=== PATIENT | female | born 1955 | race Caucasian/White ===

== ENCOUNTER 2022-11-14 00:57 | Emergency (ER) | payer MEDICARE, SELFPAY ==
--- NOTE | ~2022-11-14 | CT_ITS ---
EXAMINATION: CT ABDOMEN AND PELVIS WITH CONTRAST CLINICAL INFORMATION: Question colitis COMPARISON: None available. TECHNIQUE: Multidetector volumetric images were obtained from the superior aspect of the liver through the pubic symphysis following administration 85 mL of Omnipaque 350 intravenous contrast. Sagittal and coronal reformatted images were obtained on the technologist's workstation. Oral contrast: No This CT examination was performed using dose optimization techniques as appropriate, variously including the following: *Automated exposure control *Adjustment of mA and/or kV according to patient size (this includes techniques or standardized protocols for targeted exams where dose is matched to indication/reason for exam; i.e. extremities or head) *Use of iterative reconstruction technique DLP: 532 mGy-cm FINDINGS: LUNG BASES: The visualized lung bases are unremarkable. LIVER, GALLBLADDER, AND BILIARY TREE: The liver is normal in size, shape, and attenuation. No focal hepatic lesion. There is intrahepatic and extrahepatic biliary ductal dilatation. No ductal filling defects seen. Stones in the gallbladder lumen. The gallbladder is distended. No wall thickening. PANCREAS: Unremarkable. SPLEEN: Unremarkable. ADRENAL GLANDS: Unremarkable. KIDNEYS AND URETERS: The kidneys are normal in size, shape, and attenuation. No hydronephrosis, hydroureter, or calculi seen. No perinephric stranding. BLADDER: Unremarkable. GASTROINTESTINAL TRACT: The stomach is unremarkable. Normal caliber small bowel. No obstruction. There is diffuse colonic wall thickening with mild adjacent inflammation. No free air. Trace free fluid. Normal appendix. ABDOMINAL WALL: No significant hernia is appreciated. LYMPH NODES: Normal. VASCULAR: Normal caliber aorta with mild atherosclerotic calcification. PELVIC VISCERA: The uterus and adnexa are unremarkable. OSSEOUS STRUCTURES: No acute or suspicious osseous abnormality. Degenerative change throughout the spine. CT/CT abdomen pelvis w IV con IMPRESSION: 1. Diffuse colonic wall thickening with mild adjacent inflammation, consistent with colitis. 2. Intrahepatic and extrahepatic biliary ductal dilatation. No ductal filling defects are seen. This could be further evaluated with ERCP or MRCP. 3. Cholelithiasis. The gallbladder is distended. No wall thickening. Fleischner guidelines were followed.
[2022-11-14 00:59] VITALS: BP 137/90; PULSE 84; O2SAT 98; BMI 27.7
[2022-11-14 01:02] VITALS: BP 142/68; PULSE 98; RESP 18; TEMP 36.9; O2SAT 97
[2022-11-14 01:34] LABS: MANUAL DIFF FLAG NO
[2022-11-14 01:35] LABS: Basophils Percent Auto 0.3 % (0-2); Eosinophils Absolute Auto 0.3 X10*3/uL (0.0-0.4); Eosinophils Percent Auto 1.7 % (0-4); Hemoglobin 11.9 g/dl (12.0-16.0); Imm Gran Abs Auto 0.06 X10*3/uL (0.00-0.03); Imm Gran Pct Auto 0.4 % (0.0-0.4); Lymphocytes Absolute Auto 1.8 X10*3/uL (1.2-4.9); Lymphocytes Percent Auto 11.3 % (20-40); Mean Corpuscular HGB Conc 33.1 g/dl (31.0-35.0); Mean Corpuscular Hemoglobin 31.7 pg (27.0-33.0); Mean Platelet Volume 9.9 fL (9.4-12.3); Monocytes Absolute Auto 1.3 X10*3/uL (0.1-1.2); Monocytes Percent Auto 8.1 % (2-11); Neutrophils Absolute Auto 12.3 x10*3/uL (2.0-8.3); Neutrophils Percent Auto 78.2 % (45-73); Platelet Count 312 X10*3/uL (160-400); Red Blood Count 3.75 X10*6/uL (4.20-5.50); Red Cell Distribution Width 12.1 % (11.0-16.0); White Blood Count 15.7 X10*3/uL (4.8-10.8)
--- NOTE | 2022-11-14 01:47 | ED_ITS ---
HPI - Nausea/Vomiting/Diarrhea General Chief complaint: Nausea/Vomiting/Diarrhea Stated complaint: weakness diarrhea Time Seen by Provider: 11/14/22 01:10 Source: patient Mode of arrival: ambulatory Limitations: no limitations History of Present Illness HPI Narrative: Patient comes to the emergency room complaining of diarrhea for 8 days. Patient states that she recently traveled to [place]. The 16 people to travel together got diarrhea. They cannot pinpoint exactly what they ate, they also spec it was possibly water contamination? Salads? Patient states that on the 1st day she had fever, and today she had fever as well. Patient states that she went to urgent care and they prescribed her azithromycin. Patient has had only 1 dose. Patient denies any nausea or vomiting, only abdominal cramping, very gassy and significant amount of watery diarrhea. Related Data Home Medications Medication Instructions Recorded Confirmed azithromycin 500 mg tablet 500 mg PO DAILY 11/14/22 11/14/22 bupropion HCl 150 mg 24 hr tablet, 150 mg PO DAILY 11/14/22 11/14/22 extended release famotidine 20 mg tablet 20 mg PO BID 11/14/22 11/14/22 oxybutynin chloride 5 mg 5 mg PO DAILY 11/14/22 11/14/22 tablet,extended release 24 hr Previous Rx's Medication Instructions Recorded diphenoxylate-atropine 2.5 1 tab PO Q8H PRN diarrhea #10 tabs 11/14/22 mg-0.025 mg tablet (Lomotil) levofloxacin 500 mg tablet 500 mg PO DAILY #9 tabs 11/14/22 metronidazole 500 mg tablet 500 mg PO BID #19 tabs 11/14/22 Allergies Allergy/AdvReac Type Severity Reaction Status Date / Time No Known Allergies Allergy Verified 11/14/22 01:17 Review of Systems Review of Systems: Constitutional : No Weight loss, No Fever, No Chills, No Night Sweats, No Fatigue, No Malaise ENT/Mouth : No Hearing loss, No Ear Pain, No Nasal Congestion, No Sinus Pain, No Hoarseness, No sore throat, No Rhinorrhea, No Swallowing Difficulty Eyes: No Eye Pain, No Swelling, No Redness, No Foreign Body, No Discharge, No Vision Changes Cardiovascular : No Chest Pain, No SOB, No Dyspnea on Exertion, No Orthopnea, No Edema, No Palpitations Respiratory : No Cough, No Sputum, No Wheezing, No Smoke Exposure, No Dyspnea Gastrointestinal : No Nausea, No Vomiting, complaining of diarrhea, abdominal cramping and bloating Genitourinary : no irregular bleeding, No Dysuria, No Urinary Frequency, No Hematuria, No Urinary Incontinence, No Urgency, No Flank Pain, No Urinary Flow Changes, No Hesitancy Musculoskeletal : No joint pain, No Myalgias, No Joint Swelling Skin : No Skin Lesions, No rash Neuro : No Weakness, No Numbness, No Paresthesias, No Loss of Consciousness, No Dizziness, No Headache Psych : No Anxiety/Panic, No Depression, No SI/HI/AH/VH, No Social Issues, Heme/Lymph: No Bruising, No Bleeding,No Lymphadenopathy Endocrine : No Polyuria, No Polydipsia, No Temperature Intolerance [facility] Social History Social History Alcohol intake: never Smoked in Last 30 Days: No Use of substances other than those prescribed or required for medical reasons: No Advance Directives: No Advance Directives Information Provided: No Physical Exam Vital Signs: Vital Signs: Last Vital Signs Temp 98.4 F 11/14/22 01:02 Pulse 98 11/14/22 01:02 Resp 18 11/14/22 01:02 BP 142/68 H 11/14/22 01:02 Pulse Ox 97 11/14/22 01:02 O2 Del Method Room Air 11/14/22 01:02 BMI result Body Mass Index 27.7 Const: Other: Appearance: Alert. Oriented X3. No acute distress. Eyes: Pupils equal, round and reactive to light. ENT: Pharynx normal. Neck: Normal inspection. Neck supple. No lymph nodes noted. No crepitus CVS: Normal heart rate and rhythm. Pulses normal. Normal S1 and S2 Respiratory: No respiratory distress. Breath sounds normal. No Wheezing. No rales Abdomen: Soft and nontender. No rigidity. No distention. Skin: Skin warm and dry. Normal skin color. Normal skin turgor. Extremities: No lower extremity edema. No Lacerations. No Rash Neuro: Oriented X 3. No motor deficit. No sensory deficit. Moving all extremities. No slurred speech. CN 2 through 12 grossly intact Psych: calm, cooperative, normal affect Course Course Course Narrative: -patient received 1 L of normal saline per EMS, patient is getting a 2 L this time of lactated Ringer's. -all of patient's labs pending, CT scan pending -GI panel PCR is pending as well. The results will likely be available in couple of days if not more Medications Administered Discontinued Medications Generic Name Dose Route Start Last Admin Trade Name Rubi PRN Reason Stop Dose Admin Lactated Ringer's 1,000 mls @ 999 mls/hr 11/14/22 02:00 11/14/22 02:56 Lr IV 11/14/22 03:00 Infused .Q1H1M BRISEIDA Infusion Iohexol 85 ml 11/14/22 02:15 11/14/22 02:16 Iohexol 350 Mg/Ml 100 Ml Infus..Btl IV 11/14/22 02:16 85 ml ONCE ONE Administration Medical Decision Making Medical Decision Making [facility] [place] Narrative: -patient received IV fluids, states that she feels much better -since patient has been in the emergency room, she has been unable to provide a stool sample. -CT scan shows colitis, antibiotics will be switched to metronidazole and levofloxacin Lab Data MDM Lab Attestation statement: I reviewed the patient's lab results. 11/14/22 01:30 11/14/22 01:30 Labs: Lab Results 11/14/22 11/14/22 Range/Units 01:30 01:30 WBC 15.7 H (4.8-10.8) X10*3/uL RBC 3.75 L (4.20-5.50) X10*6/uL Hgb 11.9 L (12.0-16.0) g/dl Hct 36.0 L (37.0-47.0) % MCV 96.0 (80.0-98.0) fL MCH 31.7 (27.0-33.0) pg MCHC 33.1 (31.0-35.0) g/dl RDW 12.1 (11.0-16.0) % Plt Count 312 (160-400) X10*3/uL MPV 9.9 (9.4-12.3) fL Immature Gran % (Auto) 0.4 (0.0-0.4) % Neut % (Auto) 78.2 H (45-73) % Lymph % (Auto) 11.3 L (20-40) % [place] % (Auto) 8.1 (2-11) % Eos % (Auto) 1.7 (0-4) % Baso % (Auto) 0.3 (0-2) % Lymph # (Auto) 1.8 (1.2-4.9) X10*3/uL [place] # (Auto) 1.3 H (0.1-1.2) X10*3/uL Eos # (Auto) 0.3 (0.0-0.4) X10*3/uL Baso # (Auto) 0.0 (0.0-0.2) X10*3/uL Abs Immat Gran (auto) 0.06 H (0.00-0.03) X10*3/uL Absolute Neuts (auto) 12.3 H (2.0-8.3) x10*3/uL Absolute Nucleated RBC 0.000 (0.0-0.012) X10*3/uL Nucleated RBC % (auto) 0.0 (0.0-0.2) /100WBC Sodium 142 (135-145) mmol/L Potassium 4.7 (3.3-5.1) mmol/L Chloride 112 H (96-108) mmol/L Carbon Dioxide 24 (22-29) mmol/L Anion Gap 11 L (12-20) BUN 12 (9-16) mg/dL Creatinine 0.87 (0.5-1.4) mg/dL Estim Creat Clear Calc 66.9 Estimated GFR > 60 Random Glucose 105 (60-115) mg/dL Calcium 8.9 (8.4-10.2) mg/dL Total Bilirubin 0.9 (0.0-1.0) mg/dL AST 15 (5-31) U/L ALT 24 (0-31) U/L Alkaline Phosphatase 82 (39-117) U/L Total Protein 5.7 L (6.5-8.0) g/dL Albumin 3.2 L (3.5-5.0) g/dL Lipase 15 (8-78) U/L Radiology Impression Discussion of test interpretation with radiology: I have reviewed the radiologist's reading. Radiologist Impression: DLP: 532 mGy-cm FINDINGS: LUNG BASES: The visualized lung bases are unremarkable.? LIVER, GALLBLADDER, AND BILIARY TREE: The liver is normal in size, shape, and attenuation. No focal hepatic lesion. There is intrahepatic and extrahepatic biliary ductal dilatation. No ductal filling defects seen. Stones in the gallbladder lumen. The gallbladder is distended. No wall thickening.? PANCREAS: Unremarkable.? SPLEEN: Unremarkable.? ADRENAL GLANDS: Unremarkable.? KIDNEYS AND URETERS: The kidneys are normal in size, shape, and attenuation. No hydronephrosis, hydroureter, or calculi seen. No perinephric stranding. ? BLADDER: Unremarkable.? GASTROINTESTINAL TRACT: The stomach is unremarkable. Normal caliber small bowel. No obstruction. There is diffuse colonic wall thickening with mild adjacent inflammation. No free air. Trace free fluid. Normal appendix.? ABDOMINAL WALL: No significant hernia is appreciated.? LYMPH NODES: Normal. VASCULAR: Normal caliber aorta with mild atherosclerotic calcification. PELVIC VISCERA: The uterus and adnexa are unremarkable.? OSSEOUS STRUCTURES: No acute or suspicious osseous abnormality. Degenerative change throughout the spine.? CT/CT abdomen pelvis w IV con IMPRESSION: 1.? Diffuse colonic wall thickening with mild adjacent inflammation, consistent with colitis. 2.? Intrahepatic and extrahepatic biliary ductal dilatation. No ductal filling defects are seen. This could be further evaluated with ERCP or MRCP. 3.? Cholelithiasis. The gallbladder is distended. No wall thickening. Discharge Plan Discharge Clinical Impression: Colitis Patient Disposition: Home, Self-Care Instructions: Colitis (ED) Additional Instructions: Please follow-up with your primary care physician tomorrow. If you have any worsening or new symptoms, please return to the emergency room or call 911 Prescriptions: New levofloxacin 500 mg tablet 500 mg PO DAILY Qty: 9 0RF metronidazole 500 mg tablet 500 mg PO BID Qty: 19 0RF diphenoxylate-atropine [Lomotil] 2.5-0.025 mg tablet 1 tab PO Q8H PRN (Reason: diarrhea) Qty: 10 0RF No Action famotidine 20 mg Tablet 20 mg PO BID oxybutynin chloride 5 mg tablet extended release 24hr 5 mg PO DAILY azithromycin 500 mg tablet 500 mg PO DAILY bupropion HCl 150 mg tablet extended release 24 hr 150 mg PO DAILY
[2022-11-14 01:53] LABS: Alanine Aminotransferase 24 U/L (0-31); Albumin Level 3.2 g/dL (3.5-5.0); Alkaline Phosphatase 82 U/L (39-117); Anion Gap 11 (12-20); Aspartate Amino Transferase 15 U/L (5-31); Bilirubin Total 0.9 mg/dL (0.0-1.0); Blood Urea Nitrogen 12 mg/dL (9-16); Calcium 8.9 mg/dL (8.4-10.2); Carbon Dioxide 24 mmol/L (22-29); Chloride 112 mmol/L (96-108); Creatinine Clr Calc Pharmacy 66.9; Estimated Glomerular Filt Rate > 60; Glucose Random 105 mg/dL (60-115); Lipase 15 U/L (8-78); Potassium 4.7 mmol/L (3.3-5.1); Sodium 142 mmol/L (135-145); Total Protein 5.7 g/dL (6.5-8.0)
[2022-11-14] MEDS: Lactated Ringers 1,000 ML 999 ML IV (01:53)
--- NOTE | 2022-11-14 02:01 | PC.NURSE ---
J loop on IV changed from EMS to hospital for CT w/ contrast.
[2022-11-14] MEDS: iohexoL 350 MG/ML 100 ML INFUS..BTL 85 ML IV (02:16)
[2022-11-14] MEDS: metroNIDAZOLE 500 MG TABLET PO (03:58)
[2022-11-14] MEDS: levoFLOXacin 500 MG TABLET PO (04:01)
[2022-11-14 15:58] LABS: Adenovirus F 40/41 Not Detected (Not Detect.); Astrovirus Not Detected (Not Detect.); Campylobacter Not Detected (Not Detect.); Cryptosporidium Not Detected (Not Detect.); Cyclospora cayetanensis Not Detected (Not Detect.); E. coli EAEC Not Detected (Not Detect.); E. coli EPEC Not Detected (Not Detect.); E. coli ETEC Not Detected (Not Detect.); E. coli STEC Not Detected (Not Detect.); Entamoeba histolytica Not Detected (Not Detect.); Giardia lamblia Not Detected (Not Detect.); Norovirus GI/GII Not Detected (Not Detect.); Plesiomonas shigelloides Not Detected (Not Detect.); Rotavirus A Not Detected (Not Detect.); Salmonella Not Detected (Not Detect.); Sapovirus Not Detected (Not Detect.); Shigella sp./EIEC Not Detected (Not Detect.); Vibrio Not Detected (Not Detect.); Vibrio Cholerae Not Detected (Not Detect.); Yersinia enterocolitica Not Detected (Not Detect.)
== END 2022-11-14 04:06 | disposition home or self-care (01) ==
PROVIDERS: Emergency Provider Emergency Medicine; PCP Internal Medicine
DX: K52.9 Noninfective gastroenteritis and colitis, unspecified (principal); R10.9 Unspecified abdominal pain; R19.7 Diarrhea, unspecified; Z79.899 Other long term (current) drug therapy
CPT/HCPCS: 36415; 74177; 80053; 83690; 85025; 87507; 96360; 99284; Q9967

== ENCOUNTER 2022-11-17 15:33 | Emergency (ER) | payer MEDICARE, SELFPAY ==
--- NOTE | ~2022-11-17 | XR_ITS ---
EXAMINATION: XR CHEST CLINICAL INFORMATION: Cough, recent travel. COMPARISON: None available. TECHNIQUE: Frontal view of the chest was obtained. FINDINGS: The lungs are clear. Incidental azygos fissure. The heart and mediastinal structures are unremarkable. XR/XR chest 1V IMPRESSION: No acute cardiopulmonary process.
--- NOTE | ~2022-11-17 | CT_ITS ---
EXAMINATION: CT ANGIOGRAM OF THE CHEST WITH AND WITHOUT CONTRAST (CT PULMONARY ANGIOGRAM FOR PE) CLINICAL INFORMATION: Tachypnea, recent travel. COMPARISON: X-ray of the chest performed the same day. TECHNIQUE: Prior to contrast administration, noncontrast localization images were obtained. Subsequently, multidetector volumetric imaging was performed from the thoracic inlet to below the diaphragms following the administration of 65 mL Omnipaque 350 intravenous contrast. No contrast reaction reported Sagittal, coronal, and MIP oblique sagittal reformatted images were obtained on the CT workstation, uploaded to PACS, and reviewed. This CT examination was performed using dose optimization techniques as appropriate, variously including the following: *Automated exposure control *Adjustment of mA and/or kV according to patient size (this includes techniques or standardized protocols for targeted exams where dose is matched to indication/reason for exam; i.e. extremities or head) *Use of iterative reconstruction technique Total exam dose-length product 256 mGy-cm FINDINGS: QUALITY OF STUDY/CONTRAST BOLUS: Satisfactory. PULMONARY ARTERIES: No pulmonary emboli. THORACIC AORTA: No aneurysm. LUNG: No focal consolidation, nodules or masses. PLEURA: No pleural effusion or pneumothorax. Minimal pleural thickening of the minor fissure. MEDIASTINUM: Normal heart size. No pericardial effusion. No hilar or mediastinal lymphadenopathy. No evidence of septal bowing or right heart strain. CORONARY ARTERY CALCIFICATION: None visualized on this study. CHEST WALL/AXILLA: No axillary or internal mammary lymphadenopathy. OSSEOUS STRUCTURES: No acute or suspicious osseous abnormality. Multilevel degenerative disc changes/spondylosis throughout the dorsal spine. UPPER ABDOMEN: Unremarkable. No reflux of contrast into the hepatic veins to suggest elevated right heart pressures. CT/CT angio chest PE protocol IMPRESSION: 1. No acute pulmonary embolism. 2. No acute pulmonary disease. Minimal pleural thickening of the major fissure, likely without clinical significance, perhaps related to prior inflammatory change. VTE: Negative.
[2022-11-17 15:41] VITALS: BP 130/70; PULSE 89; RESP 18; TEMP 36.8; O2SAT 98; BMI 26.0
--- NOTE | 2022-11-17 15:42 | ED_ITS ---
HPI - General Adult General Chief complaint: Upper Respiratory Symptoms Stated complaint: Chest pain/diff breathing Time Seen by Provider: 11/17/22 19:24 History of Present Illness HPI narrative: 67 yo female with history of cholecystectomy with recent travel to [place] with return 11/09 with dry cough over one week worsening in the last 5 days, worsened with exertion with shortness of breath and pleuritic chest pain. Seen here 11/14 diagnosed with colitis sent home on levaquin and flagyl. Reports symptoms of diarrhea are better. No fevers, chills, headache, leg swelling/leg pain, dizzi ness, palpitations. Related Data Home Medications Medication Instructions Recorded Confirmed azithromycin 500 mg tablet 500 mg PO DAILY 11/14/22 11/14/22 bupropion HCl 150 mg 24 hr tablet, 150 mg PO DAILY 11/14/22 11/14/22 extended release famotidine 20 mg tablet 20 mg PO BID 11/14/22 11/14/22 oxybutynin chloride 5 mg 5 mg PO DAILY 11/14/22 11/14/22 tablet,extended release 24 hr Previous Rx's Medication Instructions Recorded diphenoxylate-atropine 2.5 1 tab PO Q8H PRN diarrhea #10 tabs 11/14/22 mg-0.025 mg tablet (Lomotil) levofloxacin 500 mg tablet 500 mg PO DAILY #9 tabs 11/14/22 metronidazole 500 mg tablet 500 mg PO BID #19 tabs 11/14/22 hydrocodone-homatropine 5 mg-1.5 5 ml PO Q4-6H PRN cough #100 mL 11/17/22 mg/5 mL (5 mL) oral syrup (Hycodan) prednisone 20 mg tablet 40 mg PO DAILY #10 tabs 11/17/22 codeine 6.3 mg-guaifenesin 100 10 ml PO Q4-6H PRN cough 5 days 11/18/22 mg/5 mL oral liquid #473 mL Allergies Allergy/AdvReac Type Severity Reaction Status Date / Time No Known Allergies Allergy Verified 11/14/22 01:17 Review of Systems Review of Systems: Yes all other systems are reviewed and are negative Constitutional: Constitutional: Reports no additional constitutional compl aints, Denies body ache(s), Denies chills, Denies fever(s), Denies headache(s) and Denies weakness Eyes: Eyes: Reports no additional eye complaints and Denies change in vision ENT: Reports system reviewed and no additional complaints, except as documented, Denies dizziness, Denies headache(s), Denies nasal congestion, Denies nasal discharge and Denies neck pain Cardiovascular: Cardiovascular: Reports no additional cardiovascular complaints, Reports chest pain, Denies leg edema and Reports dyspnea Respiratory: Respiratory: Reports no additional respiratory complaints, Reports cough and Reports dyspnea Gastrointestinal: Gastrointestinal: Reports no additional gastrointestinal complaints, Denies abdominal pain, Denies diarrhea, Denies nausea and Denies vomiting Genitourinary: Genitourinary: Reports no additional female genitourinary complaints and Denies urinary incontinence Musculoskeletal: Musculoskeletal: Reports no additional musculoskeletal complaints, Denies back pain, Denies arthralgias, Denies joint swelling, Denies neck pain, Denies numbness and Denies tingling Integumentary/Breasts: Skin/Breast: Reports system reviewed and no additional complaints, except as docu and Denies rash Neurologic: Reports system reviewed and no additional complaints, except as documented, Denies dizziness, Denies headache(s), Denies numbness, Denies tingling and Denies weakness [facility] Past Medical History Attestation statement: The following information was validated with the patient. Source: old records reviewed and nursing notes reviewed Social History Social History Alcohol intake: never Smoked in Last 30 Days: No Use of substances other than those prescribed or required for medical reasons: No Advance Directives: No Advance Directives Information Provided: No Physical Exam ED Vital Signs: Vital Signs - 24 hr 11/17/22 15:41 11/17/22 20:49 11/17/22 22:16 Temperature 98.3 F 97.7 F Pulse Rate 89 89 91 Respiratory Rate 18 16 18 Blood Pressure 130/70 125/72 Pulse Oximetry 98 96 Oxygen Delivery Method Room Air Room Air BMI result Body Mass Index 26.0 Const General: cooperative, healthy appearing, comfortable and no acute distress Orientation/consciousness: patient oriented x3 Limitations: no limitations HENMT Head: Yes normal to inspection Ears: hearing grossly normal bilaterally Eyes General: appearance normal, both eyes and all related structures Pupils: Equal, round and reactive pupils present Neck Neck: Yes normal visual inspection, Yes full ROM and Yes no lymphadenopathy Chest Chest palpation & inspection: normal inspection of the chest Resp Effort & Inspection: tachypneic (24-26) Auscultation: clear to auscultation bilaterally Cardio Rate: regular rate Rhythm: regular rhythm Peripheral pulses: Peripheral pulses 2+ throughout GI Inspection: Yes normal to inspection Palpation (GI): nontender Skin General skin exam: no rashes or lesions noted Neuro General: patient oriented x3 and moves all extremities Cranial nerves: Yes Equal, round and reactive pupils present Cognition (Neuro): normal cognition Gait exam (Neuro): Normal gait present Extrem General: Yes normal to inspection, Yes no pedal edema and Yes no calf tenderness Course Course Course Narrative: RME: 67 yold female presents to the ED for coughing with no phleghm 5 days after traveling. She states all her family also sick with similiar symptoms after traveling together. Covid/influenza and chest xray ordered. no legs swelling, calf pain, coughing, up blood, recent surgery, or pleurisy Reevaluation(s) Reevaluation #1: CTA is negative for PE. Labs are unremarkable. COVID and flu testing are negative. Likely viral URI. Patient did have some improvement with albuterol MDI. I will send her home with a prednisone course and cough suppressant. Patient reports that the Levaquin that she is taking at home for her traveler's diarrhea is giving her some anxiety. Her diarrhea is resolved and she is feeling that those symptoms are better. We discussed she may hold Levaquin and continue the Flagyl. Reviewed worrisome signs and symptoms of when to return to the emergency room. Comfortable plan for discharge home. Medications Administered Discontinued Medications Generic Name Dose Route Start Last Admin Trade Name Patrickq PRN Reason Stop Dose Admin Albuterol Sulfate 2 puff 11/17/22 20:18 11/17/22 20:47 Albuterol Sulfate 90 Mcg 8 Gm Inhaler INHALE 11/17/22 20:19 2 puff ONCE ONE Administration Iohexol 100 ml 11/17/22 21:02 11/17/22 21:02 Iohexol 350 Mg/Ml 100 Ml Infus..Btl IV 11/17/22 21:03 65 ml ONCE ONE Administration Medical Decision Making Medical Decision Making MDM Narrative: 67-year-old female who recently traveled from [place] presents the ER with complaints of shortness of breath, pleuritic chest pain and cough On exam patient has tachypnea. Lungs are clear No clinical findings concerning for DVT Do travel history, tachypnea, age patient will need a CTA of the chest rule out PE. Will check labs Differential Diagnosis Differential Diagnoses: The differential diagnosis associated with the presentation includes Viral syndrome, pneumonia, PE Lab Data MDM Lab Attestation statement: I reviewed the patient's lab results. 11/17/22 20:22 11/17/22 20:21 Labs: Lab Results 11/17/22 11/17/22 11/17/22 Range/Units 16:09 16:09 20:21 WBC (4.8-10.8) X10*3/uL RBC (4.20-5.50) X10*6/uL Hgb (12.0-16.0) g/dl Hct (37.0-47.0) % MCV (80.0-98.0) fL MCH (27.0-33.0) pg MCHC (31.0-35.0) g/dl RDW (11.0-16.0) % Plt Count (160-400) X10*3/uL MPV (9.4-12.3) fL Immature Gran % (Auto) (0.0-0.4) % Neut % (Auto) (45-73) % Lymph % (Auto) (20-40) % [place] % (Auto) (2-11) % Eos % (Auto) (0-4) % Baso % (Auto) (0-2) % Lymph # (Auto) (1.2-4.9) X10*3/uL [place] # (Auto) (0.1-1.2) X10*3/uL Eos # (Auto) (0.0-0.4) X10*3/uL Baso # (Auto) (0.0-0.2) X10*3/uL Abs Immat Gran (auto) (0.00-0.03) X10*3/uL Absolute Neuts (auto) (2.0-8.3) x10*3/uL Absolute Nucleated RBC (0.0-0.012) X10*3/uL Nucleated RBC % (auto) (0.0-0.2) /100WBC PT (10.0-13.1) SEC INR (0.9-1.1) D-Dimer High Sensitivty NG/ML Sodium 143 (135-145) mmol/L Potassium 4.0 (3.3-5.1) mmol/L Chloride 109 H (96-108) mmol/L Carbon Dioxide 23 (22-29) mmol/L Anion Gap 15 (12-20) BUN 14 (9-16) mg/dL Creatinine 0.89 (0.5-1.4) mg/dL Estim Creat Clear Calc 63.6 Estimated GFR > 60 Random Glucose 92 (60-115) mg/dL Calcium 9.9 D (8.4-10.2) mg/dL COVID-19 ([facility]) Negative (Negative) COVID-19 Clin Com See Note Influenza Type A (ALBERTO) Negative (Negative) Influenza Type B (ALBERTO) Negative (Negative) Influenza A & B Note See Note 11/17/22 11/17/22 11/17/22 Range/Units 20:22 20:22 20:22 WBC 8.1 (4.8-10.8) X10*3/uL RBC 3.80 L (4.20-5.50) X10*6/uL Hgb 12.3 (12.0-16.0) g/dl Hct 36.3 L (37.0-47.0) % MCV 95.5 (80.0-98.0) fL MCH 32.4 (27.0-33.0) pg MCHC 33.9 (31.0-35.0) g/dl RDW 12.0 (11.0-16.0) % Plt Count 376 (160-400) X10*3/uL MPV 10.2 (9.4-12.3) fL Immature Gran % (Auto) 0.2 (0.0-0.4) % Neut % (Auto) 46.3 (45-73) % Lymph % (Auto) 40.3 H (20-40) % [place] % (Auto) 9.6 (2-11) % Eos % (Auto) 2.7 (0-4) % Baso % (Auto) 0.9 (0-2) % Lymph # (Auto) 3.3 (1.2-4.9) X10*3/uL [place] # (Auto) 0.8 (0.1-1.2) X10*3/uL Eos # (Auto) 0.2 (0.0-0.4) X10*3/uL Baso # (Auto) 0.1 (0.0-0.2) X10*3/uL Abs Immat Gran (auto) 0.02 (0.00-0.03) X10*3/uL Absolute Neuts (auto) 3.8 (2.0-8.3) x10*3/uL Absolute Nucleated RBC 0.000 (0.0-0.012) X10*3/uL Nucleated RBC % (auto) 0.0 (0.0-0.2) /100WBC PT 13.0 (10.0-13.1) SEC INR 1.1 (0.9-1.1) D-Dimer High Sensitivty 348 NG/ML Sodium (135-145) mmol/L Potassium (3.3-5.1) mmol/L Chloride (96-108) mmol/L Carbon Dioxide (22-29) mmol/L Anion Gap (12-20) BUN (9-16) mg/dL Creatinine (0.5-1.4) mg/dL Estim Creat Clear Calc Estimated GFR Random Glucose (60-115) mg/dL Calcium (8.4-10.2) mg/dL COVID-19 ([facility]N) (Negative) COVID-19 Clin Com Influenza Type A (ALBERTO) (Negative) Influenza Type B (ALBERTO) (Negative) Influenza A & B Note Independent Interpretation I performed an independent interpretation of an: Plain X-Ray and CT Scan Interpretation: I independently reviewed the x-ray and agree with the radiologist's report I independently reviewed the CT scan and agree with radiologist's report Radiology Impression Discussion of test interpretation with radiology: I have reviewed the radiologist's reading. Radiologist Impression: [address] [address] XRay Report Signed Patient: Nga Chavez MR#: [id number] : 1955 Acct:[id number] Age/Sex: 67 / F ADM Date: 11/17/22 Loc: .ED Attending Dr: Ordering Physician: Alex Fritz Date of Service: 11/17/22 Procedure(s): XR chest 1V Accession Number(s): [id number] cc: Alex Fritz~ EXAMINATION: XR CHEST CLINICAL INFORMATION: Cough, recent travel. COMPARISON: None available. TECHNIQUE: Frontal view of the chest was obtained. FINDINGS: The lungs are clear. Incidental azygos fissure. The heart and mediastinal structures are unremarkable. XR/XR chest 1V IMPRESSION: No acute cardiopulmonary process. ? [address] [address] [address] Scan Report Signed Patient: Nga Chavez MR#: [id number] : 1955 Acct:[id number] Age/Sex: 67 / F ADM Date: 11/17/22 Loc: .ED Attending Dr: Ordering Physician: Iris Vanegas NP Date of Service: 11/17/22 Procedure(s): CT angio chest PE protocol Accession Number(s): [id number] cc: Iris Vanegas NP~ EXAMINATION: CT ANGIOGRAM OF THE CHEST WITH AND WITHOUT CONTRAST (CT PULMONARY ANGIOGRAM FOR PE) CLINICAL INFORMATION: Tachypnea, recent travel. COMPARISON: X-ray of the chest performed the same day.? ? TECHNIQUE: Prior to contrast administration, noncontrast localization images were obtained. ? Subsequently, multidetector volumetric imaging was performed from the thoracic inlet to below the diaphragms following the administration of 65 mL Omnipaque 350 intravenous contrast. No contrast reaction reported Sagittal, coronal, and MIP oblique sagittal reformatted images were obtained on the CT workstation, uploaded to PACS, and reviewed. This CT examination was performed using dose optimization techniques as appropriate, variously including the following: *Automated exposure control *Adjustment of mA and/or kV according to patient size (this includes techniques or standardized protocols for targeted exams where dose is matched to indication/reason for exam; i.e. extremities or head) *Use of iterative reconstruction technique Total exam dose-length product 256 mGy-cm FINDINGS: QUALITY OF STUDY/CONTRAST BOLUS: Satisfactory. PULMONARY ARTERIES: No pulmonary emboli.? THORACIC AORTA: No aneurysm. LUNG: No focal consolidation, nodules or masses. PLEURA: No pleural effusion or pneumothorax. Minimal pleural thickening of the minor fissure. MEDIASTINUM: Normal heart size.? No pericardial effusion.? No hilar or mediastinal lymphadenopathy.? No evidence of septal bowing or right heart strain. CORONARY ARTERY CALCIFICATION: None visualized on this study. CHEST WALL/AXILLA: No axillary or internal mammary lymphadenopathy. OSSEOUS STRUCTURES: No acute or suspicious osseous abnormality. Multilevel degenerative disc changes/spondylosis throughout the dorsal spine. UPPER ABDOMEN: Unremarkable. No reflux of contrast into the hepatic veins to suggest elevated right heart pressures. CT/CT angio chest PE protocol IMPRESSION: 1.? No acute pulmonary embolism. ? 2.? No acute pulmonary disease. Minimal pleural thickening of the major fissure, likely without clinical significance, perhaps related to prior inflammatory change. ? Discharge Plan Discharge Clinical Impression: Viral infection, Upper respiratory infection Patient Disposition: Home, Self-Care Instructions: Upper Respiratory Infection (ED), Viral Syndrome (ED) Additional Instructions: You can stop the levaquin Use the inhaler 2 puffs every4 hrs as needed Prescriptions: New hydrocodone-homatropine [Hycodan] 5-1.5 mg/5 mL (5 mL) syrup 5 ml PO Q4-6H PRN (Reason: cough) Qty: 100 0RF Rx Instructions: Partial Fill upon patient request. prednisone 20 mg tablet 40 mg PO DAILY Qty: 10 0RF codeine-guaifenesin 6.3-100 mg/5 mL liquid 10 ml PO Q4-6H PRN (Reason: cough) 5 Days Qty: 473 0RF Rx Instructions: Partial fill upon request No Action famotidine 20 mg Tablet 20 mg PO BID oxybutynin chloride 5 mg tablet extended release 24hr 5 mg PO DAILY azithromycin 500 mg tablet 500 mg PO DAILY bupropion HCl 150 mg tablet extended release 24 hr 150 mg PO DAILY levofloxacin 500 mg tablet 500 mg PO DAILY Qty: 9 0RF metronidazole 500 mg tablet 500 mg PO BID Qty: 19 0RF diphenoxylate-atropine [Lomotil] 2.5-0.025 mg tablet 1 tab PO Q8H PRN (Reason: diarrhea) Qty: 10 0RF Referrals: Risa Leon MD [Primary Care Provider] - 1 week Interventions: ED Discharge Assessment Last Done: 11/17/22 22:45 Discharge Date/Time: 11/17/22 23:21
[2022-11-17 16:35] LABS: COVID-19 Test Negative (Negative); IDNOW Serial# 08D9AD1C
[2022-11-17 16:36] LABS: IDNOW Serial# BCCEAD1C; Influenza A Negative (Negative); Influenza B2 Negative (Negative)
[2022-11-17 20:29] LABS: MANUAL DIFF FLAG NO
[2022-11-17 20:31] LABS: Basophils Absolute Auto 0.1 X10*3/uL (0.0-0.2); Basophils Percent Auto 0.9 % (0-2); Eosinophils Absolute Auto 0.2 X10*3/uL (0.0-0.4); Eosinophils Percent Auto 2.7 % (0-4); Hematocrit 36.3 % (37.0-47.0); Hemoglobin 12.3 g/dl (12.0-16.0); Imm Gran Abs Auto 0.02 X10*3/uL (0.00-0.03); Imm Gran Pct Auto 0.2 % (0.0-0.4); Lymphocytes Absolute Auto 3.3 X10*3/uL (1.2-4.9); Lymphocytes Percent Auto 40.3 % (20-40); Mean Corpuscular HGB Conc 33.9 g/dl (31.0-35.0); Mean Corpuscular Hemoglobin 32.4 pg (27.0-33.0); Mean Corpuscular Volume 95.5 fL (80.0-98.0); Mean Platelet Volume 10.2 fL (9.4-12.3); Monocytes Absolute Auto 0.8 X10*3/uL (0.1-1.2); Monocytes Percent Auto 9.6 % (2-11); Neutrophils Absolute Auto 3.8 x10*3/uL (2.0-8.3); Neutrophils Percent Auto 46.3 % (45-73); Platelet Count 376 X10*3/uL (160-400); White Blood Count 8.1 X10*3/uL (4.8-10.8)
[2022-11-17 20:42] LABS: INTERNATIONAL NORM RATIO 1.1 (0.9-1.1)
[2022-11-17 20:44] LABS: Anion Gap 15 (12-20); Blood Urea Nitrogen 14 mg/dL (9-16); Calcium 9.9 mg/dL (8.4-10.2); Carbon Dioxide 23 mmol/L (22-29); Chloride 109 mmol/L (96-108); Creatinine Clr Calc Pharmacy 63.6; Estimated Glomerular Filt Rate > 60; Glucose Random 92 mg/dL (60-115); Sodium 143 mmol/L (135-145)
[2022-11-17 20:45] LABS: D Dimer High Sensitivity 348 NG/ML
[2022-11-17] MEDS: Albuterol Sulfate 90 MCG 8 GM INHALER 2 PUFF INHALE (20:47)
[2022-11-17 20:49] VITALS: PULSE 89; RESP 16; O2SAT 98
[2022-11-17] MEDS: iohexoL 350 MG/ML 100 ML INFUS..BTL IV (21:02)
[2022-11-17 22:16] VITALS: BP 125/72; PULSE 91; RESP 18; TEMP 36.5; O2SAT 96
== END 2022-11-17 23:21 | disposition home or self-care (01) ==
PROVIDERS: Nurse Practitioner Family; Physician Assistant; Emergency Provider Internal Medicine; PCP Internal Medicine
DX: J06.9 Acute upper respiratory infection, unspecified (principal); R07.89 Other chest pain; B34.9 Viral infection, unspecified; Z20.822 Contact with and (suspected) exposure to COVID-19; Z20.828 Contact with and (suspected) exposure to other viral communicable diseases; Z79.899 Other long term (current) drug therapy
CPT/HCPCS: 36415; 71045; 71275; 80048; 85025; 85379; 85610; 87502; 87635; 94640; 99284; Q9967